=== PATIENT | female | born 1985 | race Caucasian/White ===

== ENCOUNTER 2017-02-14 16:20 | Emergency (ER) | payer OTHER ==
--- NOTE | 2017-02-14 16:47 | UC ---
Lower Extremity/Ankle HPI - HPI Summary HPI Summary: 31 year old female presents with left ankle pain after falling out of bed. - History of Current Complaint Chief Complaint: UCLowerExtremity Stated Complaint: ANKLE INJURY Time Seen by Provider: 02/14/17 16:44 Hx Obtained From: Patient Hx Last Menstrual Period: February 13, 2017 Onset/Duration: Lasting Days Severity Initially: Moderate Severity Currently: Moderate Pain Scale Used: 0-10 Numeric - 8 - Allergies/Home Medications Allergies/Adverse Reactions: Allergies Allergy/AdvReac Type Severity Reaction Status Date / Time Sulfa Antibiotics Allergy Severe Hives/Diff. Verified 09/12/15 10:52 Breathing/I tching Home Medications: Home Medications Fluoxetine HCl [Prozac] 40 mg PO 02/14/17 [History] PMH/Surg Hx/FS Hx/Imm Hx Previously Healthy: Yes - Surgical History Surgical History: Yes Surgery Procedure, Year, and Place: T &A. Bilat ear surgeryx4 - Family History Known Family History: Positive: Other - NONCONTIBUTORY - Social History Alcohol Use: Rare Substance Use Type: None Smoking Status (MU): Current Every Day Smoker Amount Used/How Often: 1/2 ppd Length of Time of Smoking/Using Tobacco: 10 years Household Exposure Type: Cigarettes - Immunization History Most Recent Influenza Vaccination: 2013 Review of Systems Constitutional: Negative Skin: Negative Eyes: Negative ENT: Negative Respiratory: Negative Cardiovascular: Negative Gastrointestinal: Negative Genitourinary: Negative Motor: Negative Neurovascular: Negative Musculoskeletal: Other: - left ankle pain/swelling Neurological: Negative Psychological: Negative All Other Systems Reviewed And Are Negative: Yes Physical Exam Triage Information Reviewed: Yes Vital Signs: Initial Vital Signs Temp 36.7 C 02/14/17 16:27 Pulse 74 02/14/17 16:27 Resp 16 02/14/17 16:27 BP 106/74 02/14/17 16:27 Pulse Ox 99 02/14/17 16:27 Vital Signs Reviewed: Yes Eye Exam: Normal ENT Exam: Normal Dental Exam: Normal Neck exam: Normal Neck: Positive: 1 Respiratory Exam: Normal Cardiovascular Exam: Normal Abdominal Exam: Normal Musculoskeletal: Positive: Other: - left ankle pain/swelling Neurological Exam: Normal Psychological Exam: Normal Skin Exam: Normal Lower Extremity Course/Dx - Differential Dx/Diagnosis Provider Diagnoses: left ankle pain/swelling Discharge - Discharge Plan Condition: Stable Disposition: HOME Prescriptions: Ibuprofen TAB* [Motrin TAB* 800 MG] 800 mg PO Q6H #30 tab Patient Education Materials: Ankle Sprain (ED) Forms: *Work Release Referrals: Kael Chavira MD [Medical Doctor] - Yang Myers MD [Medical Doctor] -
[2017-02-14 16:49] VITALS: BP 106/74
--- NOTE | 2017-02-14 17:17 | RAD ---
INDICATION: Fall. Ankle injury COMPARISON: None TECHNIQUE: AP, lateral, and oblique views were obtained. FINDINGS: The bony structures, joint spaces, and soft tissues are normal for age. IMPRESSION: NO ACUTE BONY FINDINGS.
== END 2017-02-14 17:37 | disposition home or self-care (01) ==
LOC: UCEAST 16:20
DX: M25.472 Effusion, left ankle (principal); Z88.2 Allergy status to sulfonamides; F17.210 Nicotine dependence, cigarettes, uncomplicated
CPT/HCPCS: 99213; G0463

== ENCOUNTER 2018-02-23 09:04 | Emergency (ER) | payer OTHER ==
--- NOTE | 2018-02-23 09:15 | UC ---
Lower Extremity/Ankle HPI - HPI Summary HPI Summary: 32 yo female presents with right ankle pain for the last 5 days. She tells me that 5 days ago her foot was asleep and she stepped awkwardly on it and rolled her right ankle. Josephine a pop and had pain. Soonafter she had swelling and bruising. She has been ambulating without assistance, but hurts to bear weight. This morning she was in bed and stretched her muscles/joints and had increased pain in her ankle. Denies numbness or tingling. - History of Current Complaint Chief Complaint: UCLowerExtremity Stated Complaint: ANKLE INJURY Time Seen by Provider: 02/23/18 09:15 Hx Obtained From: Patient Hx Last Menstrual Period: February 13, 2017 Onset/Duration: Sudden Onset Severity Initially: Moderate Severity Currently: Moderate Pain Intensity: 7 Pain Scale Used: 0-10 Numeric Aggravating Factor(s): Standing, Ambulation Able to Bear Weight: Yes - Allergies/Home Medications Allergies/Adverse Reactions: Allergies Allergy/AdvReac Type Severity Reaction Status Date / Time Sulfa (Sulfonamide Allergy Hives/Diff. Verified 02/23/18 09:19 Antibiotics) Breathing/I tching Home Medications: Home Medications ALPRAZolam [Xanax] 0.25 mg PO 02/23/18 [History] PMH/Surg Hx/FS Hx/Imm Hx - Additional Past Medical History Additional PMH: PCOS Psychological History: Anxiety, Depression - Surgical History Surgical History: Yes Surgery Procedure, Year, and Place: T &A. Bilat ear surgeryx4 - Family History Known Family History: Positive: None - Social History Occupation: Employed Full-time Lives: With Family Alcohol Use: Rare Substance Use Type: None Smoking Status (MU): Current Every Day Smoker Amount Used/How Often: 1/2 ppd Length of Time of Smoking/Using Tobacco: 10 years Household Exposure Type: Cigarettes - Immunization History Most Recent Influenza Vaccination: 2013 Review of Systems Constitutional: Negative Skin: Negative Respiratory: Negative Cardiovascular: Negative Neurovascular: Negative Musculoskeletal: Other: - Right ankle and foot pain Neurological: Negative Psychological: Negative All Other Systems Reviewed And Are Negative: Yes Physical Exam - Summary Physical Exam Summary: GENERAL: NAD. WDWN. No pain distress. SKIN: No rashes, sores, lesions, or open wounds. CHEST: No accessory muscle use. Breathing comfortably and in no distress. CV: Pulses intact PT and DP. Cap refill <2seconds MSK: RIGHT ANKLE: TTP all about lateral malleolus. Mild edema and ecchymosis. FROM with pain. Unable to perform specialized tests due to pain and pt refusal. RIGHT FOOT: TTP at 5th MT. NEURO: Alert. Sensations intact and symmetric B/L LEs PSYCH: Age appropriate behavior. Triage Information Reviewed: Yes Vital Signs: Vital Signs: Temp Pulse Resp BP Pulse Ox 98.2 F 67 18 144/94 100 02/23/18 09:13 02/23/18 09:13 02/23/18 09:13 02/23/18 09:13 02/23/18 09:13 Vital Signs Reviewed: Yes Lower Extremity Course/Dx - Course Course Of Treatment: XR: IMPRESSION: NO RADIOGRAPHICALLY APPARENT FRACTURE OR DISLOCATION INVOLVING THE RIGHT FOOT. OR ANKLE. If the patient's symptoms persist, follow-up imaging is recommended. Discussed results with pt. Advised to RICE and she was provided with a post-op shoe and gel ankle splint. F/u with Ortho if symptoms persist or worsen. - Differential Dx/Diagnosis Provider Diagnoses: Right ankle sprain Discharge - Sign-Out/Discharge Documenting (check all that apply): Patient Departure All imaging exams completed and their final reports reviewed: Yes - Discharge Plan Condition: Stable Disposition: HOME Patient Education Materials: Ankle Sprain (DC) Forms: *Work Release Referrals: Yang Avery MD [Primary Care Provider] - Ej Weston MD [Medical Doctor] - If Needed Additional Instructions: If you develop a fever, shortness of breath, chest pain, new or worsening symptoms - please call your PCP or go to the ED. Your blood pressure was high at todays visit. Please see your primary provider within 4 weeks for recheck and re-evaluation. 1) Rest, Ice, and Elevate your ankle/foot as much as possible 2) If your symptoms worsen or do not improve - please call Orthopedics at the number below to schedule a follow up appointment. - Billing Disposition and Condition Condition: STABLE Disposition: Home
[2018-02-23 09:18] VITALS: BP 144/94
--- NOTE | 2018-02-23 10:20 | RAD ---
INDICATION: Pain overlying the fifth metatarsal 5 days after a rolling injury. COMPARISON: None. TECHNIQUE: 3 views of the right ankle and 3 views of the right foot were obtained. FINDINGS: The bones are normal alignment. Joint spaces appear maintained. No fracture is seen. IMPRESSION: NO RADIOGRAPHICALLY APPARENT FRACTURE OR DISLOCATION INVOLVING THE RIGHT FOOT OR ANKLE. If the patient's symptoms persist, follow-up imaging is recommended.
== END 2018-02-23 10:56 | disposition home or self-care (01) ==
LOC: UCEAST 09:04
DX: S93.401A Sprain of unspecified ligament of right ankle, initial encounter (principal); X50.1XXA Overexertion from prolonged static or awkward postures, initial encounter; Y92.9 Unspecified place or not applicable; Z88.2 Allergy status to sulfonamides; F17.210 Nicotine dependence, cigarettes, uncomplicated
CPT/HCPCS: 99213; G0463